=== PATIENT | male | born 2000 | race African-American/Black ===

== ENCOUNTER 2025-04-08 08:43 | Outpatient (REF) | payer OTHER, SELFPAY ==
--- NOTE | ~2025-04-08 | XR_ITS ---
EXAMINATION: XR WRIST NAVICULAR RIGHT HISTORY: M79.641 - Pain in right hand COMPARISON: There are no prior studies available for comparison. FINDINGS: Four views of the right wrist including a scaphoid view are submitted. There is periarticular osteopenia. There is a mildly displaced fracture of the scaphoid waist. No additional fracture is seen. There is no dislocation. There is sclerosis of the proximal pole of the scaphoid, suggestive of avascular necrosis. The joint spaces are preserved. The soft tissues are unremarkable. XR/XR wrist RT w scaphoid IMPRESSION: Mildly displaced fracture of the scaphoid waist. Sclerosis of the proximal pole of the scaphoid is suggestive of avascular necrosis. If further imaging is desired, MRI could be performed. Electronically signed by: Alexandru Desouza MD 04/08/2025 02:53 PM EDT
== END 2025-04-08 08:44 | disposition home or self-care (01) ==
LOC: HO.HOSX 08:43
DX: S62.021K Displaced fracture of middle third of navicular [scaphoid] bone of right wrist, subsequent encounter for fracture with nonunion (principal); M79.641 Pain in right hand; W08.XXXD Fall from other furniture, subsequent encounter
CPT/HCPCS: 73110

== ENCOUNTER 2025-04-08 14:05 | Outpatient (AMB) | payer OTHER, SELFPAY ==
--- NOTE | 2025-04-08 14:11 | A.OFFVIS_ITS ---
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 States he fell while moving furniture. Patient was originally evaluated at [facility] on 10/18/24 however he did not have health insurance and was unable to seek further care. At the urgent care, he was advised to apply ice, take ibuprofen & Tylenol as needed. Currently states he has pain around his wrist and is not able to put it flat or apply pressure. Denies numbness or tingling. 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 He fell while moving furniture on 10/13/24. He was seen in urgent care on 10/18/24. Due to a lack of health insurance around his time of injury, this is the first time being seen in clinic for this. He complains of pain about his right wrist, along with limited ROM. He says his pain is worse with heavy lifting, impact activities, and he cannot place his wrist flat on a surface or apply any pressure. He denies any numbness or tingling. 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 /[employer] Review of Systems Const All systems reviewed & are unremarkable except as noted in HPI and below Physical Exam Vital Signs: BMI result Body Mass Index 21.5 Const General: cooperative, healthy appearing and no acute distress Orientation/consciousness: patient oriented x3 HEENT Head: Yes normocephalic and Yes atraumatic Eyes EOM: EOMs intact bilaterally Resp Effort & Inspection: normal respiratory effort and able to speak in complete sentences Cardio Jugular venous distension: no JVD Skin General skin exam: turgor normal Rashes: no rashes Neuro General: patient oriented x3 Extrem Other: Evaluation of Right Upper Extremity: The patient is alert, oriented, and in no acute distress Neuro: Median, Ulnar, Radial nerves motor and sensory intact and sensation is normal to the tips of all digits Vascular: Cap refill brisk ROM: He can make a fist and extend all his digits Skin: No lacerations or abrasions. General: No Ecchymosis. No Erythema or evidence of infection. Mild snuffbox tenderness No tenderness over the scaphoid tubercle Radiographs: 3 views of the right wrist plus scaphoid were taken and viewed by me today in clinic. They show a scaphoid waist fracture non-union, worrisome for AVN of the proximal pole. 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 Right scaphoid waist fracture, non-union Possible AVN of the proximal pole From a fall, DOI: 10/13/24 Seen in urgent care 10/18/24 First time being seen in clinic for this injury: 04/08/25 I educated him about this condition I discussed operative and non-operative treatment options & reviewed his radiographs with him He was fitted for a velcro wrist splint to be worn until his next appointment I discussed activity modification, he should lift nothing heavier than a cellphone with his RUE I recommend an MRI to assess for possible proximal pole AVN. Depending on the results he may require a vascularized bone graft, which should be done by a specialist at a tertiary care hospital. If he does not have AVN he may benefit from a takedown non-union, ORIF, and autologous bone graft from the distal radius I ordered a wrist MRI for assessment I explained the effects of smoking on wound/bone healing, and recommend they stop smoking prior to surgery & while healing. This includes vaping, Marijuana, and other Nicotine products including patches used to help quit. They expressed understanding. He will follow up when completed for review. This should be a 30 minute appointment Scribed for Alayna Aleman MD by wellington Orr scribe, on 04/08/25 at 2:50 PM, EST. 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
[2025-04-08 14:37] VITALS: BMI 21.5
== END 2025-04-08 15:48 | disposition home or self-care (01) ==
LOC: HO.HOS 14:05
PROVIDERS: Visit Provider Orthopaedic Surgery
DX: S62.021K Displaced fracture of middle third of navicular [scaphoid] bone of right wrist, subsequent encounter for fracture with nonunion (principal)
CPT/HCPCS: 99203

== ENCOUNTER → 2025-04-08 14:42 | Outpatient (BNV) | payer OTHER, SELFPAY | PROVIDERS: Visit Provider Radiology Diagnostic Radiology | DX: S62.001A Unspecified fracture of navicular [scaphoid] bone of right wrist, initial encounter for closed fracture (principal) | CPT/HCPCS: 73110 ==